=== PATIENT | male | born 1945 | race Caucasian/White ===

== ENCOUNTER 2023-09-10 09:53 | Outpatient (CLI) | payer MEDICARE | END 2023-09-10 09:54 | disposition home or self-care (01) | LOC: BICULT 09:53 | PROVIDERS: ATTEND Urology | DX: R35.0 Frequency of micturition (principal); C61 Malignant neoplasm of prostate; N39.498 Other specified urinary incontinence; R39.198 Other difficulties with micturition; Z90.79 Acquired absence of other genital organ(s) | CPT/HCPCS: 76770 ==